=== PATIENT | male | born 1995 | race African-American/Black ===

== ENCOUNTER 2017-09-29 21:08 | Emergency (ER) | payer SELFPAY | END 2017-09-29 22:53 | disposition home or self-care (01) | LOC: ERS 21:08 | DX: S70.361A Insect bite (nonvenomous), right thigh, initial encounter (principal); L03.115 Cellulitis of right lower limb; W57.XXXA Bitten or stung by nonvenomous insect and other nonvenomous arthropods, initial encounter | CPT/HCPCS: 99282 ==

== ENCOUNTER 2019-09-29 07:43 | Emergency (ER) | payer OTHER ==
[2019-09-29] MEDS ORDERED: diphenhydrAMINE 25 MG CAP ONE (08:10)
[2019-09-29] MEDS ORDERED: Dexamethasone 10 MG/ML VIAL ONE (08:10)
[2019-09-29] MEDS ORDERED: Famotidine 20 MG TAB ONE (08:10)
[2019-09-29] MEDS ORDERED: Dexamethasone 4 mg/ml Vial ONE (08:12)
== END 2019-09-29 08:58 | disposition home or self-care (01) ==
LOC: ERS 07:43
DX: T63.441A Toxic effect of venom of bees, accidental (unintentional), initial encounter (principal)
CPT/HCPCS: 99283; J1100; Q0163

== ENCOUNTER 2023-01-13 19:23 | Emergency (ER) | payer OTHER, SELFPAY ==
[~2023-01-13 19:23] MED LIST: Iopamidol-370 76% 500 ML MDV (1 ML CHARGE) ONE
[2023-01-13 21:15] LABS: %Lymphocytes 39.1 % (21.0-51.0); %Monocytes 9.6 % (0.0-10.0); %Neutrophils 49.3 % (42.0-75.0); Hematocrit 40.2 % (42.0-52.0); Hemoglobin 13.7 g/dL (14.0-18.0); Mean Corpuscular HGB CONC 34.1 g/dL (32.0-36.0); Mean Corpuscular Hemoglobin 31.6 pg (27.0-31.0); Mean Corpuscular Volume 92.8 fl (78.0-98.0); Mean Platelet Volume 9.9 fL (7.4-10.4); Platelet Count 222 10x3/uL (130-400); RBC Distribution Width 13.2 % (11.5-14.5); Red Blood Cell (RBC) Count 4.33 mill/uL (4.70-6.10); White Blood Cell (WBC) Count 5.5 10x3/uL (4.8-10.8)
[2023-01-13 21:16] LABS: #Eosinphils 0.1 thou/uL (0.0-0.7); #Monocytes 0.5 thou/uL (0.11-0.59); #Neutrophils 2.7 thou/uL (1.40-6.50); %Basophils 0.5 % (0.0-1.0); %Eosinophils 1.1 % (0.0-10.0)
[2023-01-13 21:36] LABS: ALT (SGPT) 21 U/L (8-55); AST (SGOT) 24 U/L (5-34); Albumin 4.3 g/dL (3.5-5.0); Alkaline Phosphatase 85 U/L (40-110); Anion Gap 12 mmol/L (10-20); BUN (Urea Nitrogen) 8 mg/dL (8.9-20.6); Bilirubin, Total 0.5 mg/dL (0.2-1.2); Calc. Creatinine Clearance 0 mL/min (70-130); Calcium 9.3 mg/dL (7.8-10.44); Carbon Dioxide 25 mmol/L (22-29); Chloride 108 mmol/L (98-107); Estimated GFR 87; Globulin 2.6 g/dL (2.4-3.5); Glucose 97 mg/dL (70-105); Potassium 3.7 mmol/L (3.5-5.1); Protein, Total 6.9 g/dL (6.0-8.3); Sodium 141 mmol/L (136-145)
== END 2023-01-13 22:52 | disposition home or self-care (01) ==
LOC: ERS 19:23
DX: L02.216 Cutaneous abscess of umbilicus (principal)
CPT/HCPCS: 36415; 74177; 80053; 85025; Q9967